=== PATIENT | female | born 1975 | race Caucasian/White ===

== ENCOUNTER 2017-03-06 10:04 | Emergency (ER) | payer OTHER ==
[~2017-03-06] VITALS: Ht 170.2 cm; Wt 81.5 kg
[~2017-03-06 10:04] MED LIST: LISI20TA11 PO; SERT25TA83 PO; SPIR25TA PO
[2017-03-06 10:13] VITALS: Ht 170.2 cm; Wt 81.5 kg
[2017-03-06] MEDS ORDERED: AMOX1TAB10 PO (10:43)
[2017-03-06] MEDS ORDERED: HYDR-906 PO (10:45)
[2017-03-06] MEDS ORDERED: CARB200T43 PO (10:53)
[2017-03-06] MEDS ORDERED: HYDROCODONE/APAP (5/325) TAB PO ONE (11:00)
--- NOTE | 2017-03-06 11:03 | ERD ---
ER Documentation Chief Complaint Date/Time DATE: 03/06/17 TIME: 10:58 Chief Complaint JAW PAIN HPI This 42-year-old female presents the emergency department today complaining of left-sided facial pain for the past 2 days. States that she has had multiple dental procedures in the past and all her teeth have had root canals that she does not think it is a nerve in her tooth. States that the pain started at the top of her jaw first. States she is taking ibuprofen and Tylenol 3 with limited improvement in symptoms. She has a history of hypertension anxiety and depression. Denies any fevers or chills. ROS All systems reviewed and are negative except as per history of present illness. Medications Home Meds Active Scripts Carbamazepine* (Carbamazepine* XR) 200 Mg Tab.er.12h, 200 MG PO Q12 for 5 Days, #10 TAB.SA Prov:ANAID RAINEY PA-C 03/06/17 Hydrocodone/Acetaminophen (Monroe 5-325 Tablet) 1 Each Tablet, 1 TAB PO Q6H Y for PAIN, #12 TAB Prov:ANAID RAINEY PA-C 03/06/17 Amoxicillin/Potassium Clav (Amox-Clav 875-125 mg Tablet) 875-125 mg Tab, 1 TAB PO BID for 7 Days, #14 TAB Prov:ANAID RAINEY PA-C 03/06/17 Reported Medications Sertraline Hcl* (Sertraline Hcl*) 25 Mg Tablet, 25 MG PO DAILY, #30 TAB 08/16/15 Spironolactone* (Aldactone*) 25 Mg Tablet, 25 MG PO DAILY, #30 TAB 08/16/15 Lisinopril* (Lisinopril*) 20 Mg Tablet, 20 MG PO DAILY, #30 TAB 08/16/15 Allergies Allergies: Coded Allergies: morphine (Unverified Allergy, Mild, 03/06/17) PMhx/Soc History of Surgery: Yes (HYSTERECTOMY, CHOLECYSTECTOMY,APPENDECTOMY,CSECTION) Anesthesia Reaction: No Hx Neurological Disorder: No Hx Respiratory Disorders: No Hx Cardiac Disorders: Yes (HTN) Hx Psychiatric Problems: No Hx Miscellaneous Medical Probl: No Hx Alcohol Use: Yes Hx Substance Use: No Hx Tobacco Use: Yes (1 PACK A DAY) Smoking Status: Current every day smoker Physical Exam Vitals Vital Signs Date Time Temp Pulse Resp B/P Pulse Ox O2 Delivery O2 Flow Rate FiO2 03/06/17 10:13 98.8 91 18 141/89 98 Physical Exam Const: No acute distress Head: Atraumatic Eyes: Normal Conjunctiva. PERRLA. EOM intact ENT: Ears TMs normal. Nose no drainage. Throat erythema no exudate. Mouth with evidence of multiple dental procedures including bridges Neck: Full range of motion..~ No meningismus. Resp: Clear to auscultation bilaterally Cardio: Regular rate and rhythm, no murmurs Skin: No petechiae or rashes Back: No midline or flank tenderness Ext: No cyanosis, or edema Neur: Awake and alert. Cranial nerves II through XII intact. No gait ataxia. Psych: Normal Mood and Affect Results 24 hrs Current Medications Medications (Trade) Dose Ordered Sig/Terri Route PRN Reason Start Time Stop Time Status Last Admin Dose Admin Acetaminophen/ Hydrocodone Bitart (Monroe (5/325)) 1 tab ONCE ONCE PO 03/06/17 11:00 03/06/17 11:01 03/06/17 10:50 Procedures/MDM This 42-year-old female presents the emergency department today complaining of left-sided facial pain for the past 2 days. Patient describes the pain going from her jaw up towards her ear and towards her eye but only on the left side. Patient's neuro exam is benign. She has no focal neurologic deficits and no gait ataxia and I do not feel the patient requires a head CT scan at this time. Low suspicion for acute hemorrhage, mass, abscess, meningitis. She is afebrile and otherwise well-appearing. Her ear exam is benign there is no evidence of otitis media, otitis externa or mastoiditis. Patient is able to fully cose her eyes and wrinkle her forehead and I have low suspicion for Swan' s palsy at this time. There is no swelling or erythema or warmth and I do not feel it there is a left-sided facial abscess however patient was concerned about all her dental procedures and was concerned about a possible infection. Given patient's concerns of given a prescription for Augmentin. Low suspicion for sinusitis however this would cover this as well.. Patient has no rash and have low suspicion for herpes zoster or herpes ophthalmicus. Patient symptoms at this time given the location of her pain appears most consistent with trigeminal neuralgia. Patient was given Monroe here in the emergency department. I did give her a short course home. I talked to Dr. Piedra about the patient he is recommended a short course of carbamazepine. She will also be discharged home with a short course of Monroe. She was instructed to call her primary care doctor today for further evaluation and management. She is also instructed to stop smoking. At this time the patient is stable for discharge and outpatient management. Patient should follow up with their PCP in the next 1-2 days. They may return to the emergency department sooner for any persistent or worsening of symptoms. Patient understood and agreed with the plan. Departure Diagnosis: Primary Impression: Facial pain Condition: Fair Patient Instructions: Trigeminal Neuralgia Additional Instructions: Call your primary care doctor TOMORROW for an appointment during the next 1-2 days.See the doctor sooner or return here if your condition worsens before your appointment time. Make an appt with your primary care doctor today Take Monroe for severe pain otherwise take Naprosyn or Tylenol or Motrin Take antibiotics as prescribed Take carbamazepine as prescribed to see if any improvement in symptoms ANAID RAINEY PA-C Mar 06, 2017 11:03
== END 2017-03-06 11:12 | disposition home or self-care (01) ==
LOC: FTE 10:04
DX: R51 Headache (principal); I10 Essential (primary) hypertension; F17.210 Nicotine dependence, cigarettes, uncomplicated
CPT/HCPCS: Z7502; Z7610; 99284